=== PATIENT | male | born 1975 | race American Indian/Alaskan Native ===

== ENCOUNTER 2018-12-02 02:10 | Emergency (ER) | payer SELFPAY ==
[2018-12-02 02:45] LABS: Color,Urine Red (Yellow)
[2018-12-02 02:46] LABS: Bilirubin,Urine Color Interference (Negative)
[2018-12-02 02:55] LABS: Blood,Urine LG (Negative); Mucus,Urine 1+ /HPF; Urobilinogen,Urine < 2.0 mg/dL (<2.0)
[2018-12-02 03:02] LABS: RBC,Urine > 182.0 /HPF (0.0-6.0); WBC,Urine < 1.0 /HPF (0.0-6.0)
[2018-12-02] MEDS ORDERED: MORPHINE IV ONE ×2 (03:03)
[2018-12-02] MEDS ORDERED: ZOFRAN IV ONE (03:03)
--- NOTE | 2018-12-02 03:06 | Emergency Department Report ---
ED Abdominal Pain HPI - General Chief Complaint: Urogenital-Male Stated Complaint: ABD PAIN/BLOOD IN URINE/VOMITING Time Seen by Provider: 12/02/18 03:00 Source: patient Mode of arrival: Ambulatory Limitations: No Limitations - History of Present Illness Initial Comments: Mr. Burnette is a 43-year-old male with history of asthma presents with 1 day of right flank pain severe sharp right lower quadrant radiating to right lower back. Positive hematuria. Positive nausea vomiting. No previous history kidney stone. No history of injury. MD Complaint: flank pain -: Gradual, days(s) (1) Location: RLQ, R flank Radiation: RLQ, R flank Severity: severe Severity scale (0 -10): 7 Quality: sharp Consistency: constant Improves With: nothing Worsens With: nothing Associated Symptoms: nausea, vomiting - Related Data Previous Rx's Medication Instructions Recorded Last Taken Type HYDROcodone/APAP 5-325 [[place] 1 each PO Q6HR PRN #10 tablet 12/02/18 Unknown Rx 5/325] Promethazine [Phenergan] 25 mg PO Q6HR PRN #10 tab 12/02/18 Unknown Rx Tamsulosin [Flomax] 0.4 mg PO QDAY 7 Days #7 cap 12/02/18 Unknown Rx Allergies Allergy/AdvReac Type Severity Reaction Status Date / Time metoclopramide [From Reglan] Allergy Shortness Verified 12/02/18 02:13 of Breath NSAIDS (Non-Steroidal Allergy Shortness Verified 12/02/18 02:13 Anti-Inflamma of Breath Penicillins Allergy Shortness Verified 12/02/18 02:13 of Breath tramadol [From Ultram] Allergy Shortness Verified 12/02/18 02:13 of Breath ED Review of Systems ROS: Stated complaint: ABD PAIN/BLOOD IN URINE/VOMITING Other details as noted in HPI Comment: All other systems reviewed and negative Constitutional: denies: fever, malaise Respiratory: denies: cough Cardiovascular: denies: chest pain Gastrointestinal: abdominal pain, nausea, vomiting Genitourinary: hematuria Musculoskeletal: back pain ED Past Medical Hx - Past Medical History Previous Medical History?: Yes Hx Asthma: Yes - Surgical History Past Surgical History?: No - Family History Family history: diabetes, hypertension - Social History Smoking Status: Former Smoker Substance Use Type: None - Medications Home Medications: Home Medications Medication Instructions Recorded Confirmed Last Taken Type HYDROcodone/APAP 5-325 [[place] 1 each PO Q6HR PRN #10 tablet 12/02/18 Unknown Rx 5/325] Promethazine [Phenergan] 25 mg PO Q6HR PRN #10 tab 12/02/18 Unknown Rx Tamsulosin [Flomax] 0.4 mg PO QDAY 7 Days #7 cap 12/02/18 Unknown Rx ED Physical Exam - General Limitations: No Limitations General appearance: alert, in no apparent distress - Head Head exam: Present: atraumatic, normocephalic - Eye Eye exam: Present: normal appearance - ENT ENT exam: Present: mucous membranes moist - Neck Neck exam: Present: normal inspection, full ROM. Absent: tenderness, meningismus - Respiratory Respiratory exam: Present: normal lung sounds bilaterally. Absent: respiratory distress, wheezes, rales, rhonchi - Cardiovascular Cardiovascular Exam: Present: regular rate, normal rhythm, normal heart sounds. Absent: systolic murmur, diastolic murmur, rubs, gallop - GI/Abdominal GI/Abdominal exam: Present: soft, normal bowel sounds. Absent: distended, tenderness, guarding, rebound - Rectal Rectal exam: Present: deferred - Extremities Exam Extremities exam: Present: normal inspection - Back Exam Back exam: Present: normal inspection - Neurological Exam Neurological exam: Present: alert, oriented X3 - Psychiatric Psychiatric exam: Present: normal affect, normal mood - Skin Skin exam: Present: warm, dry, intact, normal color. Absent: rash ED Course Vital Signs 12/02/18 12/02/18 12/02/18 02:18 03:08 03:09 Temperature 98.8 F Pulse Rate 86 70 Respiratory 18 14 14 Rate Blood Pressure 139/86 141/79 [Right] O2 Sat by Pulse 100 98 Oximetry 12/02/18 03:23 Temperature Pulse Rate 65 Respiratory 16 Rate Blood Pressure 122/79 [Right] O2 Sat by Pulse 98 Oximetry ED Medical Decision Making - Lab Data Result diagrams: 12/02/18 02:33 12/02/18 02:33 - Radiology Data Radiology results: report reviewed, image reviewed No acute process according to CT abdomen and pelvis without contrast - Medical Decision Making Mr. Burnette presents with right flank pain and hematuria. Suspect renal colic. Normal CT. Normal system according to radiology report. Possibly small stone or recently passed stone. Prescribed norco, flomax, promethazine Critical care attestation.: If time is entered above; I have spent that time in minutes in the direct care of this critically ill patient, excluding procedure time. ED Disposition Clinical Impression: Right flank pain, Hematuria Disposition: TO HOME OR SELFCARE Is pt being admited?: No Does the pt Need Aspirin: No Condition: Stable Instructions: Acute Hematuria (ED), Flank Pain (ED) Prescriptions: Tamsulosin [Flomax] 0.4 mg PO QDAY 7 Days #7 cap HYDROcodone/APAP 5-325 [[place] 5/325] 1 each PO Q6HR PRN #10 tablet PRN Reason: Pain Promethazine [Phenergan] 25 mg PO Q6HR PRN #10 tab PRN Reason: Nausea Referrals: GLADYS SANTIAGO MD [Staff Physician] - 3-5 Days Forms: Work/School Release Form(ED)
[2018-12-02 03:13] LABS: Alanine Aminotransferase 24 units/L (7-56); Albumin 4.2 g/dL (3.9-5); BUN/Creatinine Ratio 9; Blood Urea Nitrogen 12 mg/dL (9-20); Calcium 9.7 mg/dL (8.4-10.2); Hemolysis Index 9
[2018-12-02 03:46] LABS: Basophils % (Auto) 0.4 % (0.0-1.8); Eosinophils # (Auto) 0.3 K/mm3 (0.0-0.4); Eosinophils % (Auto) 4.5 % (0.0-4.3); Hematocrit 43.2 % (35.5-45.6); Hemoglobin 14.4 gm/dl (11.8-15.2); Lymphocytes # (Auto) 2.1 K/mm3 (1.2-5.4); Lymphocytes % (Auto) 32.6 % (13.4-35.0); Mean Corpuscular HGB Conc 33 % (32-34); Mean Corpuscular Volume 81 fl (84-94); Monocytes # (Auto) 0.5 K/mm3 (0.0-0.8); Monocytes % (Auto) 7.8 % (0.0-7.3); Platelet Count 292 K/mm3 (140-440); Red Blood Count 5.36 M/mm3 (3.65-5.03); Red Cell Distribution Width 15.3 % (13.2-15.2)
--- NOTE | 2018-12-02 04:15 | Cat Scan Report ---
PROCEDURE: CT ABDOMEN PELVIS WO CON TECHNIQUE: Computerized axial tomography of the abdomen and pelvis was performed without intravenous contrast. This study is performed without intravascular contrast material and its sensitivity for ab dominal and pelvic pathology, including neoplasms, inflammation, abscess, free fluid, thrombosis, art erial dissection and infarction, is reduced compared with a contrast enhanced study. CT DOSE LENGTH PRODUCT: mGycm HISTORY: hematuria right flank pain COMPARISONS: None . FINDINGS: Visualized lower thorax: There are small pleural effusions.. Liver: Normal size and attenuation. Spleen: Normal size and attenuation. Gallbladder and biliary system: Normal. Pancreas: Normal. Adrenals: Normal. Kidneys: There are no kidney stones or ureteral stones. There is no hydronephrosis.. GI tract: There is no bowel obstruction, colitis or enteritis. The appendix is normal. . Lymph nodes and mesentery: Normal. Vasculature: Normal.. Bladder: Normal. Reproductive organs: Normal. Peritoneum: There is no ascites or free air, abscess or adenopathy.. Musculoskeletal structures: No significant abnormality. Other: None. IMPRESSION: There are no kidney stones or ureteral stones. There is no hydronephrosis. There is no acute bowel abnormality. . This document is electronically signed by Daron Chirinos MD., Dec 02 2018 04:13:04 AM ET
[2018-12-02] MEDS ORDERED: DILAUDID IV ONE (04:28)
[2018-12-02] MEDS ORDERED: DILAUDID ONE (04:31)
[2018-12-02] MEDS ORDERED: PERCOCET 5/325 PO ONE (05:24)
[2018-12-02 05:42] VITALS: BP 140/74
== END 2018-12-02 05:41 | disposition home or self-care (01) ==
LOC: ED 02:10
DX: R10.9 Unspecified abdominal pain (principal); R31.9 Hematuria, unspecified; R11.2 Nausea with vomiting, unspecified; J45.909 Unspecified asthma, uncomplicated; Z87.891 Personal history of nicotine dependence; Z88.0 Allergy status to penicillin; Z88.6 Allergy status to analgesic agent; Z88.8 Allergy status to other drugs, medicaments and biological substances
CPT/HCPCS: 36415; 74176; 80053; 81001; 85025; 96374; 96375; 99284; J1170; J2270; J2405